=== PATIENT | male | born 1960 | race Hispanic/Latino ===

== ENCOUNTER 2018-04-10 08:14 | Emergency (ER) | payer MEDICARE, OTHER ==
[2018-04-10] MEDS ORDERED: PERCOCET 5/325 PO ONE (09:35)
[2018-04-10] MEDS ORDERED: PEPCID IV ONE (09:49)
[2018-04-10] MEDS ORDERED: SOLU-Medrol IV ONE (09:49)
[2018-04-10] MEDS ORDERED: TORADOL IV ONE (09:49)
--- NOTE | 2018-04-10 11:45 | Emergency Department Report ---
ED Upper Extremity Inj HPI - General Chief Complaint: Extremity Injury, Upper Stated Complaint: RT ARM PAIN Time Seen by Provider: 04/10/18 09:34 Source: patient Mode of arrival: Ambulatory Limitations: No Limitations - History of Present Illness Initial Comments: 57-year-old male with a past medical history hypertension, diabetes, elevated cholesterol, previous CVA with residual left-sided deficit, and CAD with stents presents to Hospital complaining of right arm pain since March. Patient has been back and fourth to his primary care office, urgent care, and the hospital with the same complaints. I briefly discussed case with his primary care doctor who suspects cervical radiculopathy. Outpatient MRI was attempted 2 the patient did not tolerate it secondary to pain. Patient states that the pain has improved slightly but still persists. 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 Patient was recently on Valium and Tylenol No. 3 for pain but states he has no longer taking this medication. Basis states that onset of pain right side of his neck was stiff. He is having pain down from his shoulder down to his hand primarily on the radial side of the arm. Pain is severe, constant, worse with movement, and burning at times. No injury or fever reported. - Related Data Previous Rx's Medication Instructions Recorded Last Taken Type HYDROcodone/APAP 5-325 [[place] 1 each PO Q4HR PRN #20 tablet 04/10/18 Unknown Rx 5/325] methylPREDNISolone [Medrol Dose 1 dose PO DAILY #1 pack 04/10/18 Unknown Rx Ricky] Allergies Allergy/AdvReac Type Severity Reaction Status Date / Time No Known Allergies Allergy Unverified 04/10/18 08:14 ED Review of Systems ROS: Stated complaint: RT ARM PAIN Other details as noted in HPI Comment: All other systems reviewed and negative ED Past Medical Hx - Past Medical History Hx CVA: Yes - Surgical History Past Surgical History?: Yes Additional Surgical History: cardiac stents - Social History Smoking Status: Former Smoker Substance Use Type: None - Medications Home Medications: Home Medications Medication Instructions Recorded Confirmed Last Taken Type HYDROcodone/APAP 5-325 [[place] 1 each PO Q4HR PRN #20 tablet 04/10/18 Unknown Rx 5/325] methylPREDNISolone [Medrol Dose 1 dose PO DAILY #1 pack 04/10/18 Unknown Rx Ricky] ED Physical Exam - General Limitations: No Limitations - Other Other exam information: General: No limitations, patient is alert in no acute distress Head exam: Atraumatic, normocephalic Eyes exam: Normal appearance ENT: Moist mucous membrane, normal oropharynx Neck exam: Normal inspection, full range of motion, no meningismus nontender Respiratory exam: Clear to auscultation bilateral, no wheezes, rales, crackles Cardiovascular: Normal rate and rhythm, normal heart sounds Abdomen: Soft, nondistended, and nontender, with normal bowel sounds, no rebound, or guarding Extremity: Patient has limited movement secondary to pain. Patient does have some mild tenderness to the right trapezius muscle and right shoulder. Minimal pain with passive movement of the right shoulder, elbow, or wrist. Sensation to the medial and lateral arms intact and equal. Back: Normal Inspection, full range of motion, no tenderness Neurologic: Alert, oriented x3, cranial nerves intact, patient is unable to lift left arm off the bed against gravity. Some antigravity movement of the left leg. Left-sided weakness is chronic from previous CVA. Foot drop brace noted to left foot Psychiatric: normal affect, normal mood Skin: Warm, dry, intact ED Course Vital Signs 04/10/18 04/10/18 04/10/18 08:32 09:42 09:45 Temperature 98.1 F Pulse Rate 73 Respiratory 20 Rate Blood Pressure 147/79 O2 Sat by Pulse 95 95 95 Oximetry - Consultations Consultation #1: 04/10/18 14:24 Case discussed with [facility] neurosurgeon Dr. Loo. She suggests that patient follow up with neurosurgeon Chris Chau [facility] urgently next week. ED Medical Decision Making - Radiology Data Radiology results: report reviewed MR CERVICAL SPINE WITHOUT CONTRAST HISTORY: Right arm pain and weakness. TECHNIQUE: Axial T2 and T2 gradient. Sagittal T1, T2 and STIR. COMPARISON: None. FINDINGS: The cervical spinal cord is normal size and signal intensity throughout. No abnormal intramedullary signal is detected. Normal height and alignment of the cervical vertebral bodies. Normal bone marrow signal. There is diffuse disc desiccation. Mild disc space narrowing is identified at C6-7. The facet joints are in appropriate relationship. Moderate facet arthropathy is noted at C7-T1 on the right side. The paraspinal soft tissues are within normal limits. C2-3: Within normal limits. C3-4: Within normal limits. C4-5: A mild posterior bulging disc is identified. No mass effect. C5-6: A large left paracentral disc protrusion is identified with its abuts the anterior surface of the spinal cord. There is mild central canal narrowing measuring 7.5 mm in AP dimension. No significant neural foraminal narrowing. C6-7: A moderate diffuse posterior bulging disc is identified which lateralizes to the right side there is mild central canal narrowing measuring 8.8 mm in AP dimension. Moderate right neural foraminal narrowing is estimated at 50-75%. Mild left neural foraminal narrowing is estimated at 25-50%. C7-T1: Within normal limits. Right facet arthropathy is noted. IMPRESSION: Mild diffuse disc desiccation. Large left paracentral disc herniation at C5-6 with mass effect. Moderate diffuse posterior bulging disc which lateralizes to the right side at C6-7 resulting in moderate right neural foraminal narrowing. Mild central canal stenosis at C5-6 and C6-7 as described. - Medical Decision Making In the ED patient received Toradol, Pepcid, Solu-Medrol, [place] for pain. Dilaudid and Zofran were provided prior to MRI. Patient reexamined after receiving Dilaudid and has good strength to the right upper extremity including the thumb once pain is controlled. Patient will be treated with Medrol Dosepak and narcotics for pain. - Differential Diagnosis herniated disc, cervical radiculopathy Critical Care Time: No Critical care attestation.: If time is entered above; I have spent that time in minutes in the direct care of this critically ill patient, excluding procedure time. ED Disposition Clinical Impression: Cervical disc herniation, Cervical radicular pain, Hemiparesis affecting left side as late effect of cerebrovascular accident, Right arm pain Disposition: DC-01 TO HOME OR SELFCARE Is pt being admited?: No Does the pt Need Aspirin: No Condition: Stable Instructions: Cervical Disc Herniation (ED) Additional Instructions: Take the medication as prescribed. Follow up with the neurosurgeon provided, Return if symptoms worsen as indicated by your discharge instructions. Take the copy of the CAT scan report provided to your doctor for follow-up visit. Prescriptions: HYDROcodone/APAP 5-325 [[place] 5/325] 1 each PO Q4HR PRN #20 tablet PRN Reason: Pain methylPREDNISolone [Medrol Dose Ricky] 1 dose PO DAILY #1 pack Referrals: Isac Amaya MD [Other] - 3-5 Days (Neurosurgeon) Time of Disposition: 14:35
[2018-04-10] MEDS ORDERED: ZOFRAN IV ONE (12:29)
[2018-04-10] MEDS ORDERED: DILAUDID IV ONE (12:29)
--- NOTE | 2018-04-10 13:57 | Magnetic Resonance Report ---
MR CERVICAL SPINE WITHOUT CONTRAST HISTORY: Right arm pain and weakness. TECHNIQUE: Axial T2 and T2 gradient. Sagittal T1, T2 and STIR. COMPARISON: None. FINDINGS: The cervical spinal cord is normal size and signal intensity throughout. No abnormal intramedullary signal is detected. Normal height and alignment of the cervical vertebral bodies. Normal bone marrow signal. There is diffuse disc desiccation. Mild disc space narrowing is identified at C6-7. The facet joints are in appropriate relationship. Moderate facet arthropathy is noted at C7-T1 on the right side. The paraspinal soft tissues are within normal limits. C2-3: Within normal limits. C3-4: Within normal limits. C4-5: A mild posterior bulging disc is identified. No mass effect. C5-6: A large left paracentral disc protrusion is identified with its abuts the anterior surface of the spinal cord. There is mild central canal narrowing measuring 7.5 mm in AP dimension. No significant neural foraminal narrowing. C6-7: A moderate diffuse posterior bulging disc is identified which lateralizes to the right side there is mild central canal narrowing measuring 8.8 mm in AP dimension. Moderate right neural foraminal narrowing is estimated at 50-75%. Mild left neural foraminal narrowing is estimated at 25-50%. C7-T1: Within normal limits. Right facet arthropathy is noted. IMPRESSION: Mild diffuse disc desiccation. Large left paracentral disc herniation at C5-6 with mass effect. Moderate diffuse posterior bulging disc which lateralizes to the right side at C6-7 resulting in moderate right neural foraminal narrowing. Mild central canal stenosis at C5-6 and C6-7 as described.
[2018-04-10 14:54] VITALS: BP 146/85
== END 2018-04-10 14:54 | disposition home or self-care (01) ==
LOC: ED 08:14
DX: M50.122 Cervical disc disorder at C5-C6 level with radiculopathy (principal); M50.123 Cervical disc disorder at C6-C7 level with radiculopathy; M79.601 Pain in right arm
CPT/HCPCS: 72141; 96374; 96375; 99283; J1170; J1885; J2405; J2930